=== PATIENT | male | born 1995 | race Caucasian/White ===

== ENCOUNTER 2020-01-02 12:50 | Emergency (ER) | payer OTHER ==
[~2020-01-02] VITALS: Ht 175.3 cm; Wt 75.3 kg
[2020-01-02 13:01] VITALS: BP 119/73
--- NOTE | 2020-01-02 13:10 | NUR ---
Pt c/o laceration to left thumb. States he cut finger on metal blade approx 1 hr ago. Pt denies received Tdap vacc during the past 10 years.
[2020-01-02] MEDS ORDERED: LIDOCAINE 2% 1000 MG/50 ML VIAL INJ ONE (13:29)
[2020-01-02] MEDS ORDERED: ONDANSETRON 4 MG ODT PO ONE (13:45)
--- NOTE | 2020-01-02 14:16 | NUR ---
APPLIED DRESSING TO LEFT THUMB WITHOUT ANY ISSUES
[2020-01-02 14:26] VITALS: BP 119/73
--- NOTE | 2020-01-02 14:27 | NUR ---
Patient discharged with v/s stable. Written and verbal after care instructions given and explained. Patient verbalized understanding. Ambulatory with steady gait. All questions addressed prior to discharge. Advised to follow up with PMD.
== END 2020-01-02 14:27 | disposition home or self-care (01) ==
LOC: MED 12:50
DX: S61.012A Laceration without foreign body of left thumb without damage to nail, initial encounter (principal); W27.8XXA Contact with other nonpowered hand tool, initial encounter; Y93.89 Activity, other specified; Y92.89 Other specified places as the place of occurrence of the external cause; Y99.8 Other external cause status
CPT/HCPCS: 12002; 90471; 90715; 99283; J2001; Q0162

== ENCOUNTER 2020-01-09 07:23 | Emergency (ER) | payer OTHER ==
[~2020-01-09] VITALS: Ht 175.3 cm; Wt 85.3 kg
[2020-01-09 07:27] VITALS: BP 118/68
--- NOTE | 2020-01-09 07:29 | NUR ---
To ED bed 12
--- NOTE | 2020-01-09 07:32 | NUR ---
PATIENT PRESENTS TO ED TO HAVE SUTURES REMOVED FROM LEFT THUMB. PT STATES NO PAIN AT THIS TIME. NO BLEEDING OR DRAINAGE AT SUTURE SITE. DENIES N/V/D; SKIN IS PINK/WARM/DRY; AAOX4 WITH EVEN AND STEADY GAIT; LUNGS CLEAR BL; HR EVEN AND REGULAR; PT DENIES ANY FEVER, CP, SOB, OR COUGH AT THIS TIME; PATIENT STATES PAIN OF 0/10 AT THIS TIME; VSS; PATIENT POSITIONED FOR COMFORT; HOB ELEVATED; BEDRAILS UP X2; BED DOWN. ER MD MADE AWARE OF PT STATUS.
--- NOTE | 2020-01-09 07:42 | NUR ---
Sutures removed, area cleaned. Pt tolerated procedure well.
[2020-01-09 08:06] VITALS: BP 118/68
== END 2020-01-09 08:06 | disposition home or self-care (01) ==
LOC: MED 07:23
DX: S61.012D Laceration without foreign body of left thumb without damage to nail, subsequent encounter (principal); X58.XXXD Exposure to other specified factors, subsequent encounter
CPT/HCPCS: 99281